=== PATIENT | female | born 1995 | race Caucasian/White ===

== ENCOUNTER 2020-11-11 22:45 | Outpatient (CLI) | payer OTHER ==
[~2020-11-11] VITALS: Ht 157.5 cm; Wt 86.4 kg
--- NOTE | 2020-11-11 22:50 | NUR ---
PT TO UNIT AMBULATORY WITH COMPLIANTS OF CRAMPING FOR THE LAST 2 HOURS AND N/V FOR AN HOUR. PT STATES SHE HAS VOMITED "A COUPLE OF TIMES". PT ORIENTED TO ROOM, CHANGED INTO GOWN. PT WAS IN THE BATHROOM VOMITING UPON THIS NURSES ARRIVAL INTO THE ROOM. EFM X2 APPLIED, VS OBTAINED, SVE PERFORMED.
[2020-11-11 23:30] VITALS: BP 131/81; PULSE 113; TEMP 98.8
[2020-11-11] MEDS ORDERED: PRENATAL PO (23:38)
[2020-11-11] MEDS ORDERED: NATURAL IRON65 MG PO (23:39)
[2020-11-12] VITALS: BP 102/77; PULSE 91
[2020-11-12 00:27] VITALS: BP 139/79; PULSE 80
--- NOTE | 2020-11-12 00:27 | NUR ---
PT MAY DC HOME PER DR. BARILLAS, MONITORING DC'D AT THIS TIME. PT CHANGING WHILE DISCHARGE PAPERWORK PREPARED.
--- NOTE | 2020-11-12 00:40 | NUR ---
DISCHARGE INSTRUCTIONS REVIEWED WITH PT. INSTRUCTED TO RETURN TO UNIT IF CONTRACTIONS BECOME MORE CONSISTENT OR PAINFUL, HER WATER BREAKS, OR SHE HAS HEAVY VAGINAL BLEEDING. MAY TAKE TYLENOL PER BOTTLE INSTRUCTIONS FOR DISCOMFORT. UNDERSTANDING VERBALIZED. PT OFF THE UNIT AMBULATORY.
== END 2020-11-12 00:40 | disposition home or self-care (01) ==
LOC: LDRO 22:45 → LDR 23:04 → LDRO 11-12 00:40
DX: O26.893 Other specified pregnancy related conditions, third trimester (principal); R25.2 Cramp and spasm; R11.2 Nausea with vomiting, unspecified; Z3A.36 36 weeks gestation of pregnancy
CPT/HCPCS: OP

== ENCOUNTER 2020-11-24 23:10 | Inpatient (IN) | payer OTHER ==
[~2020-11-24] VITALS: Ht 157.5 cm; Wt 87.7 kg
[~2020-11-24 23:10] MED LIST: NATURAL IRON65 MG PO; PRENATAL PO
--- NOTE | 2020-11-24 23:15 | NUR ---
2315- PT PRESENTS TO LDR COMPLAINING OF LEAKING FLUID, TO ROOM LR4 BY WHEELCHAIR ACCOMPANIED BY SPOUSE. CHANGED INTO GOWN. 232- EFMM X2 APPLIED. PT REPORTS LEAKING FLUID AT 2230, STATES SHE IS FEELING THE BABY MOVE, IS HAVING PAINFUL CONTRACTIONS, AND IS HAVING SOME VAGINAL BLEEDING. PLAN OF CARE FOR SROM CHECK DISCUSSED AND QUESTIONS ANSWERED. 2325- AMNIOTRACE NEGATIVE, SVE BY THIS NURSE 2-. DISCUSSED WITH PT TO PUT PAD ON AND SEE IF MORE FLUID LEAKS OUT. PT AGREEABLE WITH THIS. PAD PROVIDED. 2330- NURSING ADMISSION HISTORY AND ASSESSMENT COMPLETED. PT UNCOMFORTABLE AND WITH MULTIPLE POSITION CHANGES, 2340- PT STANDING AT BEDSIDE. 2345- PT UP TO BATHROOM. 2350- PT INSISTS ON GETTING INTO SHOWER. STATES IT IS THE ONLY THING THAT WILL HELP WITH HER PAIN. PT ASSISTED WITH GETTING IN SHOWER. 0005- PT MORE UNCOMFORTABLE AND BACK TO BED. 0009-EFM X2 ON. 001- SVE BY THIS NURSE WITH BULGING BAG. PT REASSURED OF STAYING FOR LABOR AND SHE DESIRES EPIDURAL. 0012- DR MASON CALLED CHARTED, ORDERS FOR ADMISSION AND EPIDURAL RECEIVED.
[2020-11-24 23:45] VITALS: BP 132/90; PULSE 94; TEMP 98.8
[2020-11-25] VITALS (29 sets, daily range): BP systolic 96–163; BP diastolic 55–104; PULSE 64–130; TEMP 97.5–98.7
--- NOTE | 2020-11-25 00:20 | NUR ---
0020- PT SITTING UP IN BED, DIFFICULT TO TRACE. 0030- IV START TO RIGHT WRIST CHARTED, BLOOD DRAWN FOR LABS, LR INFUSING. DEEPAK CARLOS CALLED FOR EPIDURAL PLACEMENT. 0036- EFM ADJUSTED. 0046- PT STANDS UP AT BEDSIDE. 0057- DEEPAK SQL [employer] DEVELOPER AT BEDSIDE FOR EPIDURAL. PT POSITIONED SITTING ON EDGE OF BED. DEEPAK DISCUSSES RISKS AND BENEFITS. PT VERBALIZES UNDERSTANDING. DIFFICULT TO TRACE HEART TONES DURING EPIDURAL DUE TO MATERNAL SIZE AND POSITION. 0105- EPIDURAL TEST DOSE. 0113- EPIDURAL PROCEDURE COMPLETE. PT TOLERATED WELL. PT POSITIONED IN LEFT TILT AND MONITORS ADJUSTED. 0120- PT COMPLAINS OF GUSH OF FLUID FROM VAGINA. SROM OF MECONIUM STAINED FLUID. SVE BY THIS NURSE 8100/0. PT REPORTS INCREASING DISCOMFORT, ESPECIALLY ON LEFT SIDE. 0125- PT POSITIONED IN RIGHT TILT PER HER REQUEST. 0130- PT REPORTS STILL MORE DISCOMFORT, POSITIONED IN LEFT TILT, DEEPAK SQL SSIS DEVELOPER AT BEDSIDE TO DOSE EPIDURAL, MONITORS ADJUSTED BUT DIFFICULT TO TRACE. 0145- PT STILL UNCOMFORTABLE AND NOW FEELING SOME PRESSURE. SVE BY THIS NURSE 100/+2 0155- PT STARTING TO FEEL BETTER AT THIS TIME. DISCUSSED PUSHING. PT WILLING TO TRY. 0205- PT POSITIONED IN LEFT TILT AND INSTRUCTED ON PUSHING WITH CONTRACTION. BABY MOVES DOWN WELL WITH ONE PUSH AND PT INSTRUCTED TO STOP SO CAN BE CALLED. 0206- DR MASON CALLED CHARTED FOR DELIVERY. ON HIS WAY. 0215- PT REPORTS SHE IS COMFORTABLE. 0221- DR MASON AT BEDSIDE FOR DELIVERY. PT POSITIONED IN FOOTPLATES FOR PUSHING. 0225- PT BEGINS COACHED PUSHING WITH CONTRACTIONS. 0228- SPONTANEOUS VAGINAL DELIVERY OF VIABLE MALE, VIGOROUS, TO WARMER AND CARE OF NURSERY STAFF. 0230- REPAIR IN PROGRESS. 0235- SPONTANEOUS DELIVERY OF PLACENTA, EXAMINED BY DR MASON. PITOCIN INFUSING ORDERED. REPAIR CONTINUES. 0245- REPAIR COMPLETE, COUNTS CORRECT. PERICARE PROVIDED. ICEPACK TO PERINEUM. FEET DOWN FROM FOOTPLATES AND RECOVERY STARTED.
[2020-11-25 00:45] LABS: BASO % 0.2 % (0.0-2.0); EOS # 0.1 (0.0-0.7); EOS % 0.8 % (0-4.0); GRAN # 6.6 (1.4-6.5); GRAN % 64.2 % (42.2-75.2); HEMATOCRIT 38.6 % (37.0-47.0); HEMOGLOBIN 12.8 g/dl (12.5-16.0); LYMPH # 2.8 (1.2-3.4); LYMPH % 27.4 % (20.0-51.0); MEAN CELL VOLUME 88 fl (80.0-100.0); MEAN CORPUSCULAR HEMOGLOBIN 29 pg (27.0-31.0); MEAN CORPUSCULAR HGB CONC 33 g/dl (33.0-37.0); MEAN PLATELET VOLUME 11.6 fl (7.4-10.4); MONO # 0.6 (0.1-0.6); MONO % 6.1 % (1.7-9.3); PLATELET COUNT 244 K/mm3 (130-400); RED BLOOD COUNT 4.39 M/mm3 (4.10-5.30); REDCELL DISTRIBUTION WIDTH-CV 15.1 % (11.5-14.5)
--- NOTE | 2020-11-25 04:45 | NUR ---
0445- NURSE TO ROOM FOR CHECK. PT COMPLAINS OF "CONTRACTIONS" THAT HURT REALLY BAD. FUNDUS UP2 WITH MODERATE BLEEDING AND SMALL CLOTS. LARGER CLOT CAN BE SEEN AT OPENING OF VULVA. STRAIGHT CATH FOR 600ML WITHOUT DIFFICULTY. 0455- AFTER STRAIGHT CATH OF 600ML, FUNDUS AT UMBILICUS AND FIRM WITH MASSAGE. LARGE CLOT AND GUSH OF BLOOD OBTAINED WITH FUNDAL MASSAGE. PT TOLERATES POORLY AND IS TEARFUL EVEN AFTER REASSURANCE. 0505- PERICARE WITH CLEAN PAD AND UNDERBUTT PAD PROVIDED. OLD PAD WEIGHED WITH 255ML EBL NOT COUNTING CLOTS ON PERIPAD. PLAN OF CARE DISCUSSED WITH PT AND SHE REQUESTS PAIN MEDICATION. STATES SHE KEEPS "CLAUDIA."
--- NOTE | 2020-11-25 05:14 | NUR ---
0514- PAIN MEDICATIONS PROVIDED REQUESTED. PT CONTINUES TO CRY OUT WITH HER PAIN. CRACKERS PROVIDED WELL. DISCUSSED NORMAL LOCHIA AND RISKS OF INCREASED BLEEDING. PT VERBALIZES UNDERSTANDING.
--- NOTE | 2020-11-25 05:30 | NUR ---
0530- PT CONTINUES TO BE IN PAIN AND REPORTS LARGE GUSH OF FLUID FROM VAGINA. PERIPADS CHANGED AND WEIGHED WITH 245ML OF BLEEDING. PLAN OF CARE TO CALL DR RAMOS. PT REQUESTS SOMETHING ELSE FOR PAIN AT THIS TIME. 6353- DR MASON CALLED CHARTED. ORDERS RECEIVED.
--- NOTE | 2020-11-25 05:50 | NUR ---
0550- METHERGINE GIVEN ORDERED. 0557- MORPHINE GIVEN ORDERED. 0600- PERIPAD CHANGED OUT AGAIN. 0608- PT STILL REPORTS BEING IN PAIN AND HAVING "CONTRACTIONS" BLEEDING SEEMS TO BE SLOWING DOWN AT THIS TIME.
--- NOTE | 2020-11-25 06:20 | NUR ---
0620-Recieved bedside shift report from JOHNSON Torres patient moaning with "uterine contraction pain." Educated patient on need to evaluate uterine bleeding and purpose of fundal massage. Asked patient permission to massage uterus. Fundus firm and lochia moderate, no clots. Ice to perineum. Offered patient breakfast, patient declines. Reviewed last dose of pain medication and next dose available. Patient verbalizes understanding and denies needs. Infant in nursery per request.
--- NOTE | 2020-11-25 07:15 | NUR ---
0715-RN to patient room. Patient sleeping. Assessment complete. Fundus firm, lochia minmal. Fundus up 1 from umbilicus and deviated from midline. Encouraged patient to attempt to void. Patient "not ready to walk to bathroom it would hurt too bad." Provided bedpan. Patient voids 50ml clear red tinged urine.
--- NOTE | 2020-11-25 09:30 | NUR ---
0900-Patient skin to skin with attempting breakfast. Lexie pad checked and gental fundal massage, lochia scant.
--- NOTE | 2020-11-25 10:30 | NUR ---
1030- Uterus up 2 and deviated to right. Ice pack pad appears completely saturated. Pt verbalizes needing to void, unsure if she can ambulate to BR due to back pain and cramping. Offered bedpan, Pt agrees to try, able to void 125mls. Uterus rechecked and continues to be up 2 and deviated right. Educated Pt on need to straight cath, understanding verbalized. 1050- Straight cath, 200mls. Pericare completed. Fundus checked and unchanged. Firm pressure results large clots expressed with small amount of free-flow. Weighed and 280ml plus previous chux and pad 60ml for total of 340mls. Dr Oleary on unit and called to bedside. Uterus at the U and firm, minimal free-flow noted. Pt verbalizes relief of back pain and pressure. Orders received from . 1115- Small amount of free-flow noted. Fundus firm and at U with no clots expressed.
[2020-11-25 12:02] LABS: MEAN CELL VOLUME 88 fl (80.0-100.0); MEAN CORPUSCULAR HGB CONC 33 g/dl (33.0-37.0); MEAN PLATELET VOLUME 11.4 fl (7.4-10.4); PLATELET COUNT 196 K/mm3 (130-400); RED BLOOD COUNT 3.16 M/mm3 (4.10-5.30); REDCELL DISTRIBUTION WIDTH-CV 15.1 % (11.5-14.5)
[2020-11-25 12:07] LABS: HEMATOCRIT 27.7 % (37.0-47.0); HEMOGLOBIN 9.2 g/dl (12.5-16.0); MEAN CORPUSCULAR HEMOGLOBIN 29 pg (27.0-31.0)
--- NOTE | 2020-11-25 14:40 | NUR ---
1440- Pt ambulates to bathroom independently with this RN standby assist. Voids 400mls, pericare explained and completed. Peripad and underwear on, discussed expected bleeding and when to call. Pt ambulates back to bedside. Epidural catheter removed without difficulty. Pt states feeling slightly light-headed, wheelchair to bedside. Pt taken to room. Transfers to bed independently. Oriented to room, call light within reach.
--- NOTE | 2020-11-25 17:30 | NUR ---
Pt up to void, long, flat, estimate to be golf ball sized clot passed on pad. Peripad 75% saturated. Pt voids without difficulty.
[2020-11-26 03:03] VITALS: BP 101/51; PULSE 83; TEMP 98.5
[2020-11-26] MEDS ORDERED: NATURAL IRON65 MG PO (07:23)
[2020-11-26] MEDS ORDERED: IBU600 MG PO (07:24)
[2020-11-26] MEDS ORDERED: PRENATAL PO (07:24)
[2020-11-26 08:56] VITALS: BP 110/62; PULSE 95; TEMP 97.7
== END 2020-11-26 13:20 | disposition home or self-care (01) | DRG 807 ==
LOC: LDRO 23:10 → LDR 23:30 → LDRO 11-25 00:16 → LDR 11-25 00:17 → OB 11-25 15:00
PROVIDERS: Obstetrics & Gynecology; Student in an Organized Health Care Education/Training Program; ADMIT Obstetrics & Gynecology
PROC: 10E0XZZ Delivery of Products of Conception, External Approach (ICD-10-PCS; principal; 2020-11-25)
PROC: 0UQMXZZ Repair Vulva, External Approach (ICD-10-PCS; 2020-11-25)
PROC: 10907ZC Drainage of Amniotic Fluid, Therapeutic from Products of Conception, Via Natural or Artificial Opening (ICD-10-PCS; 2020-11-25)
DX: O77.0 Labor and delivery complicated by meconium in amniotic fluid (principal); Z37.0 Single live birth; Z3A.38 38 weeks gestation of pregnancy; O99.02 Anemia complicating childbirth; D64.9 Anemia, unspecified; F41.9 Anxiety disorder, unspecified; O99.344 Other mental disorders complicating childbirth; O70.0 First degree perineal laceration during delivery; O71.82 Other specified trauma to perineum and vulva
CPT/HCPCS: OP; J2210; J2270; J2590; J2795; J7120

== ENCOUNTER → 2021-04-25 | Outpatient (CLI) | payer OTHER ==
[~2021-04-25] MED LIST changes: +IBU600 MG PO
== END ==
LOC: MC.RAD 09:10
DX: N63.42 Unspecified lump in left breast, subareolar (principal)